=== PATIENT | female | born 1940 | race Caucasian/White ===

== ENCOUNTER 2016-11-13 09:52 | Outpatient (CLI) | payer OTHER ==
--- NOTE | 2016-11-13 16:50 | DIAGNOSTIC IMAGING REPORT ---
PROCEDURE: US COMPLETE PELVIC W/TRANSVAG INDICATION: Pain. History of hysterectomy. TECHNIQUE: Transabdominal and endovaginal messina scale and color Doppler sonographic images of the female pelvis were obtained. COMPARISON: None. FINDINGS: TRANSABDOMINAL SCANS: Status post hysterectomy. Kidneys are normal (9.6 cm, left 9.0 cm). TRANSVAGINAL SCANS: Status post hysterectomy. Vaginal cuff appears normal. There is moderate enlargement left adnexal region (5.9 x 5.7 cm with heterogeneous appearance, increased echogenicity, there is a 2.9 cm cyst. There is mild enlargement right adnexal region (3.5 cm) with heterogeneous appearance, dystrophic calcification, and possible lipomatous change. IMPRESSION: 1. Status post hysterectomy. 2. Findings suggest moderate enlargement of the adnexal regions, left greater right, with cystic and solid components. Consider underlying mass or neoplasm. 3. CT abdomen and pelvis with intravenous contrast is recommended to further evaluate. 4. Findings discussed with ERICA Wayne.
== END 2016-11-13 23:00 ==
LOC: US SRH 09:52
DX: R10.2 Pelvic and perineal pain (principal); Z90.710 Acquired absence of both cervix and uterus

== ENCOUNTER 2016-11-21 09:43 | Outpatient (CLI) | payer OTHER ==
--- NOTE | 2016-11-21 11:24 | DIAGNOSTIC IMAGING REPORT ---
PROCEDURE: CT ABD/PELVIS WITH CONTRAST CLINICAL INDICATION: PELVIC PAIN TECHNIQUE: 125 ml of Isovue 300 were injected intravenously and axial images were obtained of the entire abdomen and pelvis with sagittal and coronal reformations. COMPARISON: Pelvic ultrasound 11/13/2016. FINDINGS: ABDOMEN: Lung base are clear. Normal heart size. Liver, gallbladder, pancreas, spleen, adrenal glands and the left kidney are normal. Small right renal cyst. Moderate atherosclerosis of the aorta. Nonspecific bowel gas pattern. PELVIS: 3.5 x 2 cm right adnexal mass with cystic component and 1.1 cm dense calcification suggestive of a dermoid. 6 x 5.7 x 4.6 cm left adnexal mass with a 3 cm cystic component and diffuse dystrophic calcifications. Small amount of free fluid. Hysterectomy. Normal appendix. Mild degenerative changes of the spine. IMPRESSION: 1. Left adnexal complex with cystic component and dystrophic calcifications associated with small amount of free fluid. Findings suspicious for neoplasm (cystadenoma, cystadenocarcinoma). Recommend a [employer] consultation 2. Right adnexal mass suggestive of a dermoid 3. Hysterectomy 4. Results discussed with ERICA Wayne All CT scans at this facility use dose modulation, iterative reconstruction, and/or weight-based dosing when appropriate to reduce radiation dose to as low as reasonably achievable.
== END 2016-11-21 23:00 ==
LOC: CT SRH 09:43
DX: R10.2 Pelvic and perineal pain (principal); R93.5 Abnormal findings on diagnostic imaging of other abdominal regions, including retroperitoneum